=== PATIENT | female | born 1950 | race Caucasian/White ===

== ENCOUNTER → 2017-12-18 | Outpatient (CLI) | payer BC, MEDICARE ==
[~2017-12-18] MED LIST: ALB18R INH; AML5 PO; AMLO-96 PO; ARIP10TA4 PO; ASPI-1441 PO; ATOR10TA65 PO; CEP500 PO; CHOL10005 PO; FEXO180T74 PO; FEXO180T87 PO; FLU IM; FLUT16SP19 NS; FLUT16SP20 NS; GLIM4TAB50 PO; GLY25 PO; IBU200 PO; IBUP-1687 PO; IBUP50TA PO; LAC100PT PO; LANS30CA63 PO; LEV125 PO; LEVO112T43 PO; LEVO150T72 PO; LEVO150T78 PO; LOSA100T67 PO; MEL7.5 GT; MELO7.5O4 PO; METF-420 PO; METXR500 PO; OND4 PO; PRA20 PO; PRED20TA6 PO; REGADENOSON 0.4 MG/5 ML SYR ONE; SITA100T PO; SITA1TAB17 PO; SPIR25TA78 PO; VALS1TAB80 PO; [UNRECOGNIZED DRUG - CODE]; [UNRECOGNIZED DRUG - CODE] PO; advair; allegra
--- NOTE | 2017-12-19 13:49 | RADIOLOGY IMAGING REPORT ---
FACILITY: [facility] PATIENT NAME: Morenita Piña : 1950 MR: [id number] V: [id number] EXAM DATE: ORDERING PHYSICIAN: DIAMOND GREWAL TECHNOLOGIST: Location: [facility] [place] Patient: Morenita Piña : 1950 Visit/Account:[id number] Date of Sevice: 12/18/2017 REGADENOSON (LEXISCAN) MYOCARDIAL PERFUSION IMAGING. EXAMINATION: Single isotope SPECT imaging with regadenoson infusion and gated SPECT imaging. DATE OF EXAMINATION: December 18, 2017. REQUESTING PHYSICIAN:CARMINA INDICATION: Chest pain PROCEDURE: After informed consent the patient received an intravenous injection of Tc-99m sestamibi followed at an appropriate time interval by rest imaging. The patient then subsequently received an intravenous infusion of 0.4 mg of regadenoson per protocol without complication. Resting heart rate was 76 bpm with a peak heart rate of 81 bpm. Blood pressure at rest was 175/64 and following infusi on was 175/64 . Baseline EKG demonstrates sinus rhythm. There were no EKG changes of ischemia follo wing infusion. Non-specific symptoms were reported. The patient then received an intravenous inject ion of Tc-99m sestamibi followed by stress imaging. DOSE of Tc-99m sestamibi (mCi): REST: 12.8 STRESS: 31.4 RAW DATA: Examination of the summed raw data revealed a excellent quality study. MYOCARDIAL PERFUSION: The tomographic images demonstrate normal myocardial perfusion study without e vidence of myocardial ischemia or infarct. GATED IMAGES: The gated images demonstrate normal left ventricular systolic performance and wall mot ion with LVEF greater than 80%. IMPRESSION: 1. Nondiagnostic ECG portion of Lexiscan stress test. 2. Normal myocardial perfusion study without evidence of myocardial ischemia or infarct 3. Normal LV systolic performance and wall motion with LVEF greater than 80% Report Dictated By: Juan Bates at 12/19/2017 1:41 PM Report E-Signed By: Juan Bates at 12/19/2017 1:45 PM WSN:[id number]
== END ==
LOC: NUC 01:58
PROVIDERS: ATTEND Family Medicine
DX: R07.89 Other chest pain (principal)
CPT/HCPCS: 78452; 93017; A9500; J2785

== ENCOUNTER → 2019-04-06 | Outpatient (CLI) | payer MEDICARE, OTHER ==
[~2019-04-06] MED LIST changes: +AMLO-125 PO; -AMLO-96 PO; +ATOR40TA69 PO; +FURO-45 PO; +GLIM2TAB43 PO; +HYDR30CR10 TP; +LEVO125T6; -LOSA100T67 PO; +LOSA100T75 PO; +METF-450 PO; +METF-452 PO; +METH4TAB66 PO; +MONT10TA PO; +PIOG30TA71 PO; -REGADENOSON 0.4 MG/5 ML SYR ONE; +SPIR25TA80 PO; +SULF-198 PO
--- NOTE | 2019-04-06 12:34 | RADIOLOGY IMAGING REPORT ---
FACILITY: [facility] - [place], [place] PATIENT NAME: Morenita Piña : 1950 MR: [id number] V: [id number] EXAM DATE: ORDERING PHYSICIAN: TAMMY ABBOTT TECHNOLOGIST: Location: [facility] [place] Patient: Morenita Piña : 1950 Visit/Account:[id number] Date of Sevice: 04/06/2019 Exam type: CHEST PA LAT History: Cough and shortness of breath Comparison: December 24, 2008. Findings: The lungs are free of acute effusions, infiltrates or edema. The cardiac silhouette is upper limits of normal in size. There is no evidence of a pneumothorax or pneumomediastinum. Suggest shape scoli osis of the thoracolumbar spine IMPRESSION: 1. No acute cardiopulmonary process is seen Report Dictated By: Nori Conley MD at 04/06/2019 12:28 PM Report E-Signed By: Nori Conley MD at 04/06/2019 12:30 PM WSN:[id number]
== END ==
LOC: RAD 10:55
PROVIDERS: ATTEND Family Medicine
DX: R05 Cough (principal)
CPT/HCPCS: 71046